=== PATIENT | female | born 1950 | race Two or more races ===

== ENCOUNTER 2023-11-13 11:21 | Inpatient (IN) | payer MEDICARE, OTHER ==
[~2023-11-13] VITALS: Ht 154.9 cm; Wt 75.7 kg
[2023-11-13] MEDS: amLODIPine BESYLATE 5 MG TAB PO ONE (12:06)
[2023-11-13 13:04] LABS: Basophils # (auto) 0.1 10 ^3/uL (0-0.2); Basophils % (auto) 0.7 % (0.0-2.0); Eosinophils # (auto) 0.1 10 ^3/uL (0-0.8); Eosinophils % (auto) 0.4 % (0.0-7.0); Hematocrit 48.6 % (36.0-46.0); Hemoglobin 16.7 g/dL (12.2-16.2); Lymphocytes # (auto) 1.7 10 ^3/uL (0.4-5.4); Lymphocytes % (auto) 10.5 % (10.0-50.0); Mean Corpuscular Hemoglobin 29.8 pg (28.0-32.0); Mean Corpuscular Hgb Conc. 34.3 g/dL (32.0-36.0); Mean Corpuscular Volume 86.8 fL (80.0-100.0); Monocytes # (auto) 0.9 10 ^3/uL (0-1.3); Monocytes % (auto) 5.7 % (0.0-12.0); Neutrophils # (auto) 13.6 10 ^3/uL (1.6-8.6); Neutrophils % (auto) 82.7 % (37.0-80.0); Nucleated Red Blood Cells % 0.2 %; Red Cell Distribution Width 13.4 % (11.8-14.3); White Blood Cell 16.5 10^3/uL (4.4-10.8)
[2023-11-13 13:33] LABS: Chloride 103 mmol/L (98-107); Potassium 3.5 mmol/L (3.5-5.1); Sodium 136 mmol/L (136-145)
[2023-11-13 13:34] LABS: Anion Gap 8 (5-15); Carbon Dioxide 25 mmol/L (20-30)
[2023-11-13 13:35] LABS: Calcium 9.9 mg/dL (8.5-10.1)
[2023-11-13 13:39] LABS: Glucose 115 mg/dL (74-106)
[2023-11-13 13:40] LABS: BUN/Creatinine Ratio 15.9 (10.0-20.0); Blood Urea Nitrogen 14 mg/dL (9-23)
[2023-11-13] MEDS ORDERED: DOCUSATE SOD 100 MG CAP PO PRN (14:30)
[2023-11-13] MEDS ORDERED: ONDANSETRON HCL 4 MG/2 ML VIAL IV PRN (14:30)
[2023-11-13] MEDS: HYDROcodone-ACET 10/325MG TAB PO ONE (14:56)
[2023-11-13] MEDS: ENOXAPARIN SOD 40 MG/0.4 ML SYRINGE SC SCH (14:57)
[2023-11-13] MEDS: hydrALAZINE HCL 20 MG/ML VL IV PRN (23:23)
[2023-11-14] VITALS (7 sets, daily range): BP systolic 134–167; BP diastolic 78–99; PULSE 83–102; RESP 14–20; TEMP 97.6–98.5; O2SAT 93–97
[2023-11-14] MEDS: cloNIDine HCL 0.1 MG TAB PO ONE (01:30)
[2023-11-14] MEDS ORDERED: ASPI-543 PO (02:41)
[2023-11-14] MEDS: dilTIAZem 25 MG/5 ML VIAL IV ONE (02:59)
[2023-11-14 06:15] LABS: Basophils # (auto) 0.1 10 ^3/uL (0-0.2); Basophils % (auto) 0.9 % (0.0-2.0); Eosinophils # (auto) 0.2 10 ^3/uL (0-0.8); Hematocrit 44.5 % (36.0-46.0); Hemoglobin 15.2 g/dL (12.2-16.2); Lymphocytes # (auto) 1.8 10 ^3/uL (0.4-5.4); Lymphocytes % (auto) 16.3 % (10.0-50.0); Mean Corpuscular Hemoglobin 29.8 pg (28.0-32.0); Mean Corpuscular Hgb Conc. 34.1 g/dL (32.0-36.0); Mean Corpuscular Volume 87.3 fL (80.0-100.0); Monocytes # (auto) 0.7 10 ^3/uL (0-1.3); Monocytes % (auto) 6.8 % (0.0-12.0); Nucleated Red Blood Cells % 0.1 %; Red Cell Distribution Width 13.3 % (11.8-14.3); White Blood Cell 10.9 10^3/uL (4.4-10.8)
[2023-11-14 06:43] LABS: Alanine Aminotransferase 10 U/L (7-40); Albumin 3.7 g/dL (3.2-4.8); Alkaline Phosphatase 108 U/L (46-116); Anion Gap 7 (5-15); Aspartate Aminotransferase 18 U/L (13-40); Blood Urea Nitrogen 15 mg/dL (9-23); Calcium 9.8 mg/dL (8.5-10.1); Carbon Dioxide 25 mmol/L (20-30); Chloride 106 mmol/L (98-107); Glucose 138 mg/dL (74-106); Potassium 3.4 mmol/L (3.5-5.1); Sodium 138 mmol/L (136-145); Total Protein 6.5 g/dL (5.7-8.2)
[2023-11-14] MEDS: amLODIPine BESYLATE 5 MG TAB PO SCH (10:31)
[2023-11-14 11:01] LABS: Hepatitis B Surface Antigen Negative (Negative)
[2023-11-14 11:22] LABS: Hepatitis C Antibody Negative (Negative)
[2023-11-14] MEDS: METOPROLOL TARTRATE 50 MG TAB PO ONE (14:17)
[2023-11-14] MEDS: hydroCHLOROthiazide 25 MG TAB PO ONE (18:31)
[2023-11-14] MEDS: POTASSIUM EFFERVESENT TAB 25 MEQ PO ONE (18:31)
[2023-11-14] MEDS: LISINOPRIL 20 MG TAB PO ONE (18:32)
[2023-11-14] MEDS ORDERED: METOPROLOL TARTRATE 50 MG TAB PO SCH (22:00)
[2023-11-15] VITALS (7 sets, daily range): BP systolic 119–201; BP diastolic 62–92; PULSE 88–120; RESP 11–20; TEMP 97.7–98.6; O2SAT 90–100
[2023-11-15] MEDS: hydroCHLOROthiazide 25 MG TAB PO SCH (10:20)
[2023-11-15] MEDS: NIFEdipine ER 30 MG TAB PO SCH (10:20)
[2023-11-15] MEDS: MORPHINE SULFATE INJ 2 MG/ml SYRG IV PRN (10:21)
[2023-11-15] MEDS: LISINOPRIL 20 MG TAB PO SCH (10:21)
[2023-11-15] MEDS: ceFAZolin 2 GM/D5W50ml 50 ML IV ONE (12:24)
[2023-11-15] MEDS ORDERED: PROPOFOL 10 MG/ML 20 ML IV ONE (12:32)
[2023-11-15] MEDS ORDERED: fentaNYL CITRATE 100 MCG/2 ML VL ONE (12:32)
[2023-11-15] MEDS ORDERED: MEPERIDINE HCL (50 MG/ML) 1 ML VIAL ONE (12:55)
[2023-11-15] MEDS ORDERED: ePHEDrine SULFATE 50 MG/ML AMP ONE (12:56)
[2023-11-15] MEDS ORDERED: LABETALOL HCL 5 MG/ML ML 20ML VIAL IV ONE (13:11)
[2023-11-15] MEDS ORDERED: ONDANSETRON HCL 4 MG/2 ML VIAL ONE (13:11)
[2023-11-15] MEDS: ROPIVACAINE 0.5% (5MG/ML) 20ML AMPULE IJ ONE (13:20)
[2023-11-15] MEDS: ALPRAZolam 0.5 MG TAB PO SCH (13:58)
[2023-11-15] MEDS ORDERED: HYDROmorphone HCL 2 MG/ML VL/or syr IV PRN (14:00)
[2023-11-15] MEDS ORDERED: LABETALOL HCL 5 MG/ML 4ML SYRINGE IV PRN (14:00)
[2023-11-15] MEDS ORDERED: MEPERIDINE HCL (25 MG/ML) 1ML VIAL IV PRN (14:00)
[2023-11-15] MEDS: ONDANSETRON HCL 4 MG/2 ML VIAL IV ONE (14:00)
[2023-11-15] MEDS: HYDROcodone-ACET 7.5/325MG TAB PO PRN (23:31)
[2023-11-16 08:45] VITALS: BP 140/67; PULSE 105; RESP 18; TEMP 98.6; O2SAT 92
[2023-11-16] MEDS ORDERED: CEPH500C PO (09:18)
[2023-11-16] MEDS ORDERED: LISI20TA56 PO (09:18)
[2023-11-16] MEDS ORDERED: ALPR1TAB2 PO (09:18)
[2023-11-16] MEDS ORDERED: NIFE1TAB30 PO (09:18)
[2023-11-16] MEDS ORDERED: HYDR-4902 PO (09:18)
[2023-11-16 11:08] VITALS: BP 140/67; PULSE 94; RESP 18; TEMP 98.6; O2SAT 92
== END 2023-11-16 12:30 | disposition home or self-care (01) | DRG 315 ==
LOC: ER 11:21 → CENTRAL 16:01 → OVERFLOW 16:01 → CENTRAL 23:53
PROVIDERS: ADMIT Nurse Practitioner Family; ATTEND Family Medicine
PROC: 0PSJ04Z Reposition Left Radius with Internal Fixation Device, Open Approach (ICD-10-PCS; principal; 2023-11-15 12:40)
DX: S52.532A Colles' fracture of left radius, initial encounter for closed fracture (principal); D72.829 Elevated white blood cell count, unspecified; S52.612A Displaced fracture of left ulna styloid process, initial encounter for closed fracture; E66.9 Obesity, unspecified; F41.9 Anxiety disorder, unspecified; I16.1 Hypertensive emergency; W18.39XA Other fall on same level, initial encounter; Z91.199 Patient's noncompliance with other medical treatment and regimen due to unspecified reason; Y93.89 Activity, other specified; Y99.8 Other external cause status; Z79.899 Other long term (current) drug therapy; Y92.009 Unspecified place in unspecified non-institutional (private) residence as the place of occurrence of the external cause; Z68.31 Body mass index [BMI] 31.0-31.9, adult
CPT/HCPCS: 36415; 71045; 73100; 73110; 76000; 80048; 80053; 83036; 85025; 86803; 86850; 86900; 86901; 87340; 93005; 93306; 96372; G0378; J2405; J2704

== ENCOUNTER → 2024-02-06 | Outpatient (CLI) | payer MEDICARE, OTHER ==
[~2024-02-06] MED LIST: ALPR1TAB2 PO; ASPI-543 PO; CEPH500C PO; HYDR-4902 PO; LISI20TA56 PO; NIFE1TAB30 PO
[2024-02-06 11:50] LABS: Potassium 4.5 mmol/L (3.5-5.1)
== END | disposition home or self-care (01) ==
LOC: LAB 10:32
PROVIDERS: ATTEND Internal Medicine
DX: I10 Essential (primary) hypertension (principal); E78.6 Lipoprotein deficiency; E78.5 Hyperlipidemia, unspecified; Z79.899 Other long term (current) drug therapy
CPT/HCPCS: 36415; 80061; 82306; 84132; 84439; 84443

== ENCOUNTER → 2024-04-09 | Outpatient (CLI) | payer MEDICARE, OTHER ==
[2024-04-09 13:44] LABS: Alanine Aminotransferase 18 U/L (7-40); Albumin 4.2 g/dL (3.2-4.8); Alkaline Phosphatase 104 U/L (46-116); Anion Gap 7 (5-15); Aspartate Aminotransferase 14 U/L (13-40); BUN/Creatinine Ratio 16.3 (10.0-20.0); Blood Urea Nitrogen 15 mg/dL (9-23); Calcium 10.3 mg/dL (8.7-10.4); Carbon Dioxide 28 mmol/L (20-31); Chloride 107 mmol/L (98-107); Glucose 93 mg/dL (74-106); LDL Cholesterol 98 mg/dL (< 100); Potassium 4.8 mmol/L (3.5-5.1); Sodium 142 mmol/L (136-145); Triglycerides 131 mg/dL (< 150)
[2024-04-09 13:45] LABS: Bilirubin, Total 0.9 mg/dL (0.2-1.0); Cholesterol 156 mg/dL (< 200); HDL Cholesterol 43 mg/dL (40-59); Total Protein 7.3 g/dL (5.7-8.2)
== END | disposition home or self-care (01) ==
LOC: LAB 11:19
PROVIDERS: ATTEND Internal Medicine
DX: I10 Essential (primary) hypertension (principal); E78.00 Pure hypercholesterolemia, unspecified
CPT/HCPCS: 36415; 80053; 80061